=== PATIENT | male | born 1980 | race Caucasian/White ===

== ENCOUNTER 2020-06-26 10:26 | Emergency (ER) | payer OTHER ==
[~2020-06-26] VITALS: Ht 188 cm; Wt 106.0 kg
[2020-06-26 11:14] LABS: MICROSCOPIC INDICATED
[2020-06-26 11:20] VITALS: BP 150/98
[2020-06-26] MEDS ORDERED: KETOROLAC 30 MG/1 ML ONE (11:25)
--- NOTE | 2020-06-26 11:29 | NUR ---
TASK RN: PT AMBULATORY TO ROOM 14 W/ C/O R FLANK PAIN STARTED YESTERDAY WORSENED THIS AM. PT ALSO STATES HEMATURIA. PT STATES HX MULTIPLE KIDNEY STONES IN THE PAST MOST RECENT WAS 8 MM KIDNEY STONE 7-8 WKS AGO. PT RESTING ON GURNEY. NADN. MONITORS APPLIED. VSS. WARM BLANKET PROVIDED. CITLALLI PERSAUD AT BEDSIDE FOR EVAL.
[2020-06-26] MEDS ORDERED: SODIUM CHLORIDE FLUSH 10ML SYR IVF ONE (11:30)
[2020-06-26] MEDS ORDERED: KETOROLAC 30 MG/1 ML IVPush ONE (11:30)
--- NOTE | 2020-06-26 11:31 | NUR ---
X-RAY, US DELAY
[2020-06-26 11:38] LABS: BASOPHILS % (AUTO) 1 % (0-1); EOSINOPHILS % (AUTO) 1 % (1-7); LYMPHOCYTES % (AUTO) 24 % (22-44); MEAN CORPUSCULAR HEMOGLOBIN 30.3 pg (27.5-34.5); MEAN CORPUSCULAR HGB CONC 34.4 g/dL (33.2-36.2); MEAN PLATELET VOLUME 8.1 fL (7.4-10.4); MONOCYTES % (AUTO) 8 % (2-9); NEUTROPHILS % (AUTO) 66 % (42-75); PLATELET COUNT 196 x10^3/uL (130-400); RED BLOOD COUNT 4.95 x10^6/uL (4.38-5.82); RED CELL DISTRIBUTION WIDTH 12.9 % (9.4-14.8)
[2020-06-26 11:46] LABS: ALANINE AMINOTRANSFERASE 31 U/L (12-78); ALBUMIN 3.9 g/dL (3.4-5.0); CALCIUM 8.9 mg/dL (8.5-10.1); CREATININE 1.09 mg/dL (0.7-1.3)
[2020-06-26 11:48] LABS: ALKALINE PHOSPHATASE 70 U/L (45-117); BILIRUBIN,TOTAL 0.3 mg/dL (0.2-1.0); TOTAL PROTEIN 7.2 g/dL (6.4-8.2)
[2020-06-26 11:53] LABS: MD NO
[2020-06-26 11:56] LABS: ANION GAP 5 mmol/L (5-15); CHLORIDE 107 mmol/L (98-107)
== END 2020-06-26 12:58 | disposition home or self-care (01) ==
LOC: ED 12:26
DX: N20.0 Calculus of kidney (principal); Z88.2 Allergy status to sulfonamides; Z88.5 Allergy status to narcotic agent
CPT/HCPCS: 36415; 74018; 76770; 80053; 81001; 85025; 96374; 99285; J1885

== ENCOUNTER 2020-09-17 07:19 | Emergency (ER) | payer OTHER ==
[~2020-09-17] VITALS: Ht 188 cm; Wt 108.4 kg
[2020-09-17 07:21] VITALS: BP 165/90
--- NOTE | 2020-09-17 07:25 | NUR ---
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 GIVEN URINE CUP WITH CLEAN CATCH UA INSTRUCTIONS.
[2020-09-17] MEDS ORDERED: KETOROLAC 30 MG/1 ML IVPush ONE (08:00)
[2020-09-17] MEDS ORDERED: MORPHINE SULFATE 4 MG/ML, 1ML IVPush PRN (08:00)
[2020-09-17] MEDS ORDERED: ONDANSETRON 2MG/ML, 2ML IVPush ONE (08:00)
[2020-09-17] MEDS ORDERED: SODIUM CHLORIDE FLUSH 10ML SYR IVF ONE (08:00)
[2020-09-17 08:08] LABS: MICROSCOPIC AUTO
[2020-09-17] MEDS ORDERED: ONDANSETRON 2MG/ML, 2ML ONE (08:33)
[2020-09-17] MEDS ORDERED: KETOROLAC 30 MG/1 ML ONE (08:33)
[2020-09-17] MEDS ORDERED: MORPHINE SULFATE 4 MG/ML, 1ML ONE (08:33)
--- NOTE | 2020-09-17 08:48 | NUR ---
PT AMBULATES TO BATHROOM AGAIN INDEPENDENTLY BETWEEN US STUDIES. NAD NOTED AT THIS TIME.
[2020-09-17 09:02] LABS: BASOPHILS % (AUTO) 1 % (0-1); EOSINOPHILS % (AUTO) 2 % (1-7); LYMPHOCYTES % (AUTO) 36 % (22-44); MEAN CORPUSCULAR HEMOGLOBIN 30.6 pg (27.5-34.5); MEAN CORPUSCULAR HGB CONC 34.9 g/dL (33.2-36.2); MEAN PLATELET VOLUME 8.6 fL (7.4-10.4); MONOCYTES % (AUTO) 7 % (2-9); NEUTROPHILS % (AUTO) 55 % (42-75); PLATELET COUNT 180 x10^3/uL (130-400)
[2020-09-17 09:10] LABS: ALANINE AMINOTRANSFERASE 28 U/L (12-78); ALBUMIN 3.8 g/dL (3.4-5.0); ANION GAP 5 mmol/L (5-15); CALCIUM 8.6 mg/dL (8.5-10.1); CHLORIDE 105 mmol/L (98-107)
[2020-09-17 09:12] LABS: ALKALINE PHOSPHATASE 57 U/L (45-117); BILIRUBIN,TOTAL 0.5 mg/dL (0.2-1.0); TOTAL PROTEIN 7.1 g/dL (6.4-8.2)
== END 2020-09-17 10:24 | disposition home or self-care (01) ==
LOC: ED 10:04
DX: R10.9 Unspecified abdominal pain (principal); G89.29 Other chronic pain
CPT/HCPCS: 36415; 76770; 80053; 81001; 83690; 85025; 96374; 96375; 99284; J1885; J2270; J2405